=== PATIENT | female | born 1935 | race Caucasian/White ===

== ENCOUNTER 2018-01-30 03:52 | Inpatient (IN) | payer OTHER ==
[2018-01-30] MEDS ORDERED: ONDANSETRON 4 MG/2 ML VIAL ONE (04:22)
[2018-01-30] MEDS ORDERED: NA CHLORIDE 0.9% 500 ML ONE ×2 (04:22→06:04)
[2018-01-30 05:17] LABS: Absolute Lymphocytes (CBC) 0.6 K/uL (0.7-4.9); Absolute Monocytes 0.6 K/uL (0.1-1.3); Basophils % 0.2 % (0-1.3); Eosinophils % 0.1 % (0-4.4); Lymphocytes % 5.5 % (15.3-44.8); MCH 31.3 pg (27.0-35.0); MPV 10.3 fL (7.6-11.3); Monocytes % 5.6 % (3.3-12.3); RBC Red Blood Cell Count 4.41 M/uL (3.86-4.86)
[2018-01-30 05:25] LABS: Albumin 3.4 g/dL (3.4-5.0); Bilirubin Direct 0.3 mg/dL (0-0.2); Potassium 3.7 mmol/L (3.5-5.1); Protein, Total 7.7 g/dL (6.4-8.2)
[2018-01-30 05:39] LABS: Urine Blood 3+ (NEG); Urine Glucose NEGATIVE (NEG); Urine Protein NEGATIVE (NEG); Urine Specific Gravity 1.015 (1.005-1.030); Urine pH 8.5 (5.0-7.0)
[2018-01-30 05:43] LABS: Urine Bacteria LOADED /HPF (<20)
[2018-01-30 05:44] LABS: Urine Culture Reflex Order REFLEXED; Urine Triple Phosphate Crystal FEW (NONE SEEN)
--- NOTE | 2018-01-30 05:57 | EDPHYS ---
Physician Documentation [facility] Name: Kenia Mei Age: 82 yrs Sex: Female : 1935 Arrival Date: 01/30/2018 Time: 03:54 Bed 7 Private MD: ED Physician Marco Estevez HPI: 01/30 05:52 This 82 yrs old Female presents to ER via EMS with complaints of Vomiting. gs 05:52 The patient presents to the emergency department with nausea, vomiting. Onset: The gs symptoms/episode began/occurred acutely, suddenly. Possible causes: unknown. The symptoms are aggravated by nothing. The symptoms are alleviated by nothing. Associated signs and symptoms: Pertinent negatives: fever. Severity of symptoms: At their worst the symptoms were moderate in the emergency department the symptoms have improved moderately. The patient has experienced similar episodes in the past, a few times. The patient has not recently seen a physician. Historical: - Allergies: 04:11 Codeine; ea - Home Meds: 04:11 acetaminophen 325 mg Oral tab 2 tabs every 6 hours [Active]; Cozaar 100 mg Oral tab 1 ea tab once daily [Active]; losartan 100 mg oral tab 1 tab once daily [Active]; Lasix 40 mg Oral tab 1 tab 2 times per day [Active]; potassium chloride 10 mEq Oral cpER 1 cap once daily [Active]; Prilosec 20 mg Oral cpDR 1 cap once daily [Active]; tolterodine 4 mg oral cp24 1 cap once daily [Active]; Vitamin B-12 1,000 mcg Oral tab 1,000 mcg [Active]; Xarelto 20 mg oral tab 1 tab once daily [Active]; Zocor 40 mg Oral tab 1 tab once daily [Active]; - PMHx: 04:11 urinary retention; SVT; Anemia; Atrial Fib; CHF; Genital herpes; Hyperlipidemia; ea Hypertension; Hypokalemia; kidney failure; Major Depressive Disorder; muscle wasting and atrophy; Urinary incontinence; UTI (Chronic); - PSHx: 04:11 Bilateral Knee Surgery; ea - Immunization history:: Adult Immunizations up to date. - Social history:: Smoking status: Patient/guardian denies using tobacco. - Ebola Screening: : No symptoms or risks identified at this time. ROS: 05:52 All other systems are negative. gs Exam: 05:52 Head/Face: Normocephalic, atraumatic. Eyes: Pupils equal round and reactive to light, gs extra-ocular motions intact. Lids and lashes normal. Conjunctiva and sclera are non-icteric and not injected. Cornea within normal limits. Periorbital areas with no swelling, redness, or edema. ENT: Nares patent. No nasal discharge, no septal abnormalities noted. Tympanic membranes are normal and external auditory canals are clear. Oropharynx with no redness, swelling, or masses, exudates, or evidence of obstruction, uvula midline. Mucous membranes moist. Neck: Trachea midline, no thyromegaly or masses palpated, and no cervical lymphadenopathy. Supple, full range of motion without nuchal rigidity, or vertebral point tenderness. No Meningismus. Chest/axilla: Normal chest wall appearance and motion. Nontender with no deformity. No lesions are appreciated. Respiratory: Lungs have equal breath sounds bilaterally, clear to auscultation and percussion. No rales, rhonchi or wheezes noted. No increased work of breathing, no retractions or nasal flaring. Abdomen/GI: Soft, non-tender, with normal bowel sounds. No distension or tympany. No guarding or rebound. No evidence of tenderness throughout. Back: No spinal tenderness. No costovertebral tenderness. Full range of motion. Skin: Warm, dry with normal turgor. Normal color with no rashes, no lesions, and no evidence of cellulitis. MS/ Extremity: Pulses equal, no cyanosis. Neurovascular intact. Full, normal range of motion. Neuro: Awake and alert, GCS 15, oriented to person, place, time, and situation. Cranial nerves II-XII grossly intact. Motor strength 5/5 in all extremities. Sensory grossly intact. Cerebellar exam normal. Normal gait. 05:52 Constitutional: The patient appears alert, awake. 05:52 Cardiovascular: Rate: tachycardic, Rhythm: irregularly irregular, Pulses: no pulse deficits are appreciated. 05:52 ECG was reviewed by the Attending Physician. Vital Signs: 03:55 BP 102 / 68; Pulse 109; Resp 18; Temp 98; Pulse Ox 97% on R/A; Weight 90.72 kg; Height ea 5 ft. 4 in. (162.56 cm); Pain 0/10; 04:54 BP 111 / 72; Pulse 104; Resp 22; Pulse Ox 95% on R/A; jb4 06:00 BP 108 / 65; Pulse 108; Resp 18; Pulse Ox 92% on R/A; jb4 06:30 BP 98 / 45; Pulse 126; Resp 18; Pulse Ox 91% ; jb4 07:14 BP 98 / 62; Pulse 101 MON; Resp 17; Temp 98.0; Pulse Ox 98% on R/A; Pain 0/10; sg 07:29 BP 116 / 68; Pulse 105; Resp 16 S; Temp 98.3(O); Pulse Ox 96% on 2 lpm NC; Pain 0/10; aa5 03:55 Body Mass Index 34.33 (90.72 kg, 162.56 cm) ea 07:14 A fib sg MDM: 04:08 Patient medically screened. 05:52 Differential diagnosis: Nonspecific abd pain, viral gastroenteritis, gastroenteritis, gs uti. Data reviewed: vital signs, nurses notes. Response to treatment: the patient's symptoms have mildly improved after treatment, and as a result, I will admit patient. 01/30 04:11 Order name: Basic Metabolic Panel; Complete Time: 05:39 01/30 04:11 Order name: CBC with Diff 01/30 04:11 Order name: Hepatic Function; Complete Time: 05:39 01/30 04:11 Order name: Lipase; Complete Time: 05:39 01/30 04:11 Order name: Urine Microscopic Only; Complete Time: 05:50 01/30 05:31 Order name: Urine Dipstick--Ancillary (enter results); Complete Time: 05:39 rg2 01/30 05:44 Order name: Urine Culture EDGA 01/30 05:51 Order name: Blood Culture* 01/30 05:51 Order name: Lactate 01/30 05:52 Order name: Blood Culture ED[facility] 01/30 05:52 Order name: Lactate EDGA 01/30 06:04 Order name: Comprehensive Metabolic Panel [facility] 01/30 06:04 Order name: Comprehensive Metabolic Panel [facility] 01/30 06:04 Order name: Troponin I [facility] 01/30 04:11 Order name: IV Saline Lock; Complete Time: 04:23 01/30 04:11 Order name: Labs collected and sent; Complete Time: 04:23 01/30 04:11 Order name: Urine Dipstick-Ancillary (obtain specimen); Complete Time: 05:15 01/30 04:11 Order name: EKG; Complete Time: 04:12 01/30 04:11 Order name: EKG - Nurse/Tech; Complete Time: 04:50 01/30 06:04 Order name: CONS Pharmacy Consult EDGA 01/30 06:04 Order name: Troponin I [facility] 01/30 06:04 Order name: Troponin I [facility] 01/30 06:04 Order name: Full Liquid [facility] 01/30 06:33 Order name: Manual Differential ED[facility] EC:52 Rate is 108 beats/min. Rhythm is irregularly irregular. QRS interval is normal. QT gs interval is normal. T waves are Inverted. Clinical impression: NSR w/ Non-specific ST/T Changes and Abnormal EKG without significant change. Administered Medications: 04:23 Drug: Zofran 4 mg Route: IVP; Site: right forearm; jb4 04:50 Follow up: Response: No adverse reaction jb4 04:23 Drug: NS 0.9% 500 ml Route: IV; Rate: bolus; Site: right forearm; jb4 06:31 Drug: Rocephin - (cefTRIAXone) 1 grams Route: IVPB; Infused Over: 30 mins; Site: right ea forearm; 07:00 Follow up: Response: No adverse reaction; IV Status: Completed infusion sg 06:31 Drug: NS 0.9% 500 ml Route: IV; Rate: bolus; Site: right forearm; ea 07:20 Follow up: IV Status: Completed infusion aa5 Disposition: 01/30/18 05:57 Hospitalization ordered by Fabiana Rich for Inpatient Admission. Preliminary diagnosis are Gram-negative sepsis, unspecified, Acute tubulo-interstitial nephritis. - Bed requested for Telemetry/MedSurg (Inpatient). - Status is Inpatient Admission. aa5 - Condition is Stable. - Problem is new. - Symptoms have improved. UTI on Admission? Yes Signatures: Dispatcher [employer] EDGA Tawanna Neri RN RN mw Calderon, Audri RN RN aa5 Robert Fraser RN RN jb4 Carleen Patricio RN RN ea Starr, Gregory, MD MD gs Gay, Steven RN sg Corrections: (The following items were deleted from the chart) 06:09 05:57 Hospitalization Ordered by Fabiana Rich MD for Inpatient Admission. Preliminary mw diagnosis is Gram-negative sepsis, unspecified; Acute tubulo-interstitial nephritis. Bed requested for Telemetry/MedSurg (Inpatient). Status is Inpatient Admission. Condition is Stable. Problem is new. Symptoms have improved. UTI on Admission? Yes. 07:59 06:09 01/30/2018 05:57 Hospitalization Ordered by Fabiana Rich MD for Inpatient aa5 Admission. Preliminary diagnosis is Gram-negative sepsis, unspecified; Acute tubulo-interstitial nephritis. Bed requested for Telemetry/MedSurg (Inpatient). Status is Inpatient Admission. Condition is Stable. Problem is new. Symptoms have improved. UTI on Admission? Yes. mw
--- NOTE | 2018-01-30 05:57 | ER ---
Nurse's Notes [facility] Name: Kenia Mei Age: 82 yrs Sex: Female : 1935 Arrival Date: 01/30/2018 Time: 03:54 Bed 7 Private MD: Diagnosis: Gram-negative sepsis, unspecified;Acute tubulo-interstitial nephritis Presentation: 01/30 03:58 Presenting complaint: EMS states: Pt has vomited coffee ground like emesis. Transition jb4 of care: patient was received from another setting of care (long-term care facility), [facility]. Onset of symptoms was January 30, 2018. Risk Assessment: Do you want to hurt yourself or someone else? Patient reports no desire to harm self or others. Initial Sepsis Screen: Does the patient meet any 2 criteria? No. Patient's initial sepsis screen is negative. Does the patient have a suspected source of infection? No. Patient's initial sepsis screen is negative. Care prior to arrival: None. 03:58 Method Of Arrival: EMS: [facility] jb4 03:58 Acuity: NENA 3 jb4 Triage Assessment: 03:58 General: Appears in no apparent distress. comfortable, Behavior is calm, cooperative, jb4 appropriate for age. Pain: Denies pain. GI: Abdomen is flat, Bowel sounds present X 4 quads. Abd is soft and non tender X 4 quads. Reports vomiting. Historical: - Allergies: 04:11 Codeine; ea - Home Meds: 04:11 acetaminophen 325 mg Oral tab 2 tabs every 6 hours [Active]; Cozaar 100 mg Oral tab 1 ea tab once daily [Active]; losartan 100 mg oral tab 1 tab once daily [Active]; Lasix 40 mg Oral tab 1 tab 2 times per day [Active]; potassium chloride 10 mEq Oral cpER 1 cap once daily [Active]; Prilosec 20 mg Oral cpDR 1 cap once daily [Active]; tolterodine 4 mg oral cp24 1 cap once daily [Active]; Vitamin B-12 1,000 mcg Oral tab 1,000 mcg [Active]; Xarelto 20 mg oral tab 1 tab once daily [Active]; Zocor 40 mg Oral tab 1 tab once daily [Active]; - PMHx: 04:11 urinary retention; SVT; Anemia; Atrial Fib; CHF; Genital herpes; Hyperlipidemia; ea Hypertension; Hypokalemia; kidney failure; Major Depressive Disorder; muscle wasting and atrophy; Urinary incontinence; UTI (Chronic); - PSHx: 04:11 Bilateral Knee Surgery; ea - Immunization history:: Adult Immunizations up to date. - Social history:: Smoking status: Patient/guardian denies using tobacco. - Ebola Screening: : No symptoms or risks identified at this time. Screenin:56 Abuse screen: Denies threats or abuse. Nutritional screening: No deficits noted. ea Tuberculosis screening: No symptoms or risk factors identified. 04:02 Fall Risk None identified. jb4 Assessment: 04:02 General: Appears in no apparent distress. comfortable, Behavior is calm, cooperative, jb4 appropriate for age. Pain: Denies pain. Neuro: Level of Consciousness is awake, alert, obeys commands, Oriented to person, place, time, situation. Cardiovascular: Denies chest pain, shortness of breath, Heart tones S1 S2 present Patient's skin is warm and dry. Respiratory: Airway is patent Respiratory effort is even, unlabored, Respiratory pattern is regular, symmetrical, Breath sounds are clear bilaterally. Denies shortness of breath. GI: Abdomen is round Bowel sounds present X 4 quads. Abd is soft and non tender X 4 quads. Reports Coffee ground like emesis. : No signs and/or symptoms were reported regarding the genitourinary system. EENT: No signs and/or symptoms were reported regarding the EENT system. Derm: Skin is intact, Skin is pink, warm \T\ dry. Musculoskeletal: Circulation, motion, and sensation intact. 04:54 Reassessment: Patient appears in no apparent distress at this time. Patient and/or jb4 family updated on plan of care and expected duration. Pain level reassessed. Patient is alert, oriented x 3, equal unlabored respirations, skin warm/dry/pink. Patient denies pain at this time. 05:30 Reassessment: Patient appears in no apparent distress at this time. Patient and/or jb4 family updated on plan of care and expected duration. Pain level reassessed. Patient is alert, oriented x 3, equal unlabored respirations, skin warm/dry/pink. Patient denies pain at this time. 06:30 Reassessment: Patient appears in no apparent distress at this time. Patient and/or jb4 family updated on plan of care and expected duration. Pain level reassessed. Patient is alert, oriented x 3, equal unlabored respirations, skin warm/dry/pink. Pt put on 2l NC per protocol. Patient denies pain at this time. 07:20 General: Appears comfortable, Behavior is calm, cooperative, appropriate for age. Pain: aa5 Denies pain. Neuro: Level of Consciousness is awake, alert, obeys commands, Oriented to person, place, time, situation, Pricing Supervisor are equal bilaterally Moves all extremities. Speech is normal, Facial symmetry appears normal, Pupils are PERRLA. Cardiovascular: Heart tones S1 S2 present Rhythm is irregular. Respiratory: Airway is patent Respiratory effort is even, unlabored, Respiratory pattern is regular, symmetrical, Breath sounds are clear bilaterally. GI: Abdomen is round obese, Bowel sounds present X 4 quads. Abd is soft and non tender X 4 quads. Reports vomiting, Patient currently denies nausea. : Denies burning with urination. EENT: No signs and/or symptoms were reported regarding the EENT system. Derm: Skin is pink, warm \T\ dry. Musculoskeletal: Range of motion: intact in all extremities, Pt reports she is ambulatory with a walker. 07:50 Reassessment: Patient is alert, oriented x 3, equal unlabored respirations, skin aa5 warm/dry/pink. Vital Signs: 03:55 BP 102 / 68; Pulse 109; Resp 18; Temp 98; Pulse Ox 97% on R/A; Weight 90.72 kg; Height ea 5 ft. 4 in. (162.56 cm); Pain 0/10; 04:54 BP 111 / 72; Pulse 104; Resp 22; Pulse Ox 95% on R/A; jb4 06:00 BP 108 / 65; Pulse 108; Resp 18; Pulse Ox 92% on R/A; jb4 06:30 BP 98 / 45; Pulse 126; Resp 18; Pulse Ox 91% ; jb4 07:14 BP 98 / 62; Pulse 101 MON; Resp 17; Temp 98.0; Pulse Ox 98% on R/A; Pain 0/10; sg 07:29 BP 116 / 68; Pulse 105; Resp 16 S; Temp 98.3(O); Pulse Ox 96% on 2 lpm NC; Pain 0/10; aa5 03:55 Body Mass Index 34.33 (90.72 kg, 162.56 cm) ea 07:14 A fib sg ED Course: 03:54 Patient arrived in ED. tl2 03:57 Marco Estevez MD is Attending Physician. gs 03:57 Patient has correct armband on for positive identification. Placed in gown. Bed in low ea position. Call light in reach. Side rails up X2. 03:57 Arm band placed on right wrist. Patient placed in an exam room, on a stretcher, on ea pulse oximetry. 03:58 Robert Fraser, RN is Primary Nurse. jb4 04:00 Triage completed. jb4 04:02 Pulse ox on. NIBP on. jb4 04:25 Inserted saline lock: 22 gauge in right forearm, using aseptic technique. Blood jb4 collected. 05:56 Fabiana Rich MD is Hospitalizing Provider. gs 07:00 No provider procedures requiring assistance completed. IV is patent. sg 07:50 Patient admitted, IV remains in place. aa5 Administered Medications: 04:23 Drug: Zofran 4 mg Route: IVP; Site: right forearm; jb4 04:50 Follow up: Response: No adverse reaction jb4 04:23 Drug: NS 0.9% 500 ml Route: IV; Rate: bolus; Site: right forearm; jb4 06:31 Drug: Rocephin - (cefTRIAXone) 1 grams Route: IVPB; Infused Over: 30 mins; Site: right ea forearm; 07:00 Follow up: Response: No adverse reaction; IV Status: Completed infusion sg 06:31 Drug: NS 0.9% 500 ml Route: IV; Rate: bolus; Site: right forearm; ea 07:20 Follow up: IV Status: Completed infusion aa5 Outcome: 05:57 Decision to Hospitalize by Provider. gs 07:50 Admitted to Tele accompanied by tech, via stretcher, with oxygen, with chart, Report aa5 called to CLEMENT Tejada 07:50 Condition: stable 07:50 Discharge instructions given to patient, Instructed on the need for admit, Demonstrated understanding of instructions. 07:59 Patient left the ED. aa5 Signatures: Liborio Rosado RN RN sg Calderon, Audri, RN RN aa5 Bhavana Heath RN RN tl2 Robert Fraser RN RN jb4 Carleen Patricio RN RN ea Starr, Gregory, MD MD Corrections: (The following items were deleted from the chart) 06:47 06:30 BP 108 / 65; Pulse 108bpm; Resp 18bpm; Pulse Ox 92% RA; jb4 jb4 06:48 06:30 Reassessment: Patient appears in no apparent distress at this time. Patient jb4 and/or family updated on plan of care and expected duration. Pain level reassessed. Patient is alert, oriented x 3, equal unlabored respirations, skin warm/dry/pink. Patient denies pain at this time. jb4
[2018-01-30] MEDS ORDERED: ONDANSETRON 4 MG/2 ML VIAL IV PRN (06:02)
[2018-01-30] MEDS ORDERED: MORPHINE 2 MG/ML SYR IV PRN (06:02)
[2018-01-30] MEDS ORDERED: ACETAMINOPHEN 500 MG TAB PO PRN (06:02)
[2018-01-30] MEDS ORDERED: CEFTRIAXONE 1000 MG/VIAL ONE (06:03)
[2018-01-30 06:33] LABS: Blood Morphology Comment NOT SEEN (NOT SEEN); Platelet Estimate ADEQ
--- NOTE | 2018-01-30 07:57 | P.HP ---
Certification for Inpatient Patient admitted to: Inpatient With expected LOS: >2 Midnights Patient will require the following post-hospital care: None Practitioner: I am a practitioner with admitting privileges, knowledge of patient current condition, hospital course, and medical plan of care. Services: Services provided to patient in accordance with Admission requirements found in Title 42 Section 412.3 of the Code of Federal Regulations Patient History Date of Service: 01/30/18 Reason for admission: coffee-ground emesis/atrial fibrillation/history of anti coagulation use/ History of Present Illness: patient is an 82-year-old female who came to the hospital with coffee-ground emesis. Patient has been having coffee-ground emesis for the last 12 hr. Patient is on anti coagulation for her atrial fibrillation. Patient was sent over for evaluation. In the ER she had lab workup done which did not indicate significant anemia. However patient was tachycardic and she had a leukocytosis. It was decided that patient should be admitted for further evaluation for her Coffee-ground emesis and monitoring her H&H. Will hydrate her and give her some anti emetics. Patient has significant dementia and is not able to give us much information. She has significant dementia but does get around in her wheelchair at the long term. Will monitor her very closely. Patient is a full code. Allergies codeine Allergy (Verified 04/23/17 00:37) Itching Home Medications: Rivaroxaban [Xarelto] 20 mg PO DAILY #30 tablet 05/23/15 Potassium Chloride [Klor-Con 10] 1 tab PO DAILY 07/18/15 Simvastatin [Zocor*] 1 tab PO DAILY 07/18/15 Tolterodine Tartrate [Detrol LA*] 1 cap PO DAILY 07/18/15 Acetaminophen 650 mg PO Q6HP PRN 04/23/17 Albuterol Neb [Proventil 0.083% Neb Soln] 3 ml NEB Q8H 04/23/17 Hydrocodone/Chlorphen P-Stirex [Tussionex Pennkinetic Susp] 5 ml PO Q12HP PRN Losartan Potassium 100 mg PO DAILY 04/23/17 Tolterodine Tartrate [Detrol] 2 mg PO BID 04/23/17 Amlodipine [Norvasc*] 10 mg PO DAILY #30 tab 04/26/17 Azithromycin Tab [Zithromax*] 500 mg PO DAILY #10 tab 11/26/17 Pantoprazole [Protonix Tab*] 40 mg PO DAILYAC #30 tab 04/26/17 - Past Medical/Surgical History Diabetic: No -: Atrial fibrillation -: Cardiomyopathy -: Hypertension -: Gastroesophageal reflux disease -: Osteoarthritis -: Bladder spasms -: Alzheimer's dementia -: bilateral knee replacement -: bilateral cataract surgery - Family History Father Notes: pt unable to answer questions - Social History Alcohol use: No CD- Drugs: No Caffeine use: No Review of Systems is unable to be obtained (patient with significant dementia) Physical Examination - Vital Signs Temperature: 98 F Blood Pressure: 130/80 Pulse: 78 Respirations: 18 Pulse Ox (%): 96 - Physical Exam General: Alert, In no apparent distress, Demented HEENT: Atraumatic, Normocephalic Neck: Supple, 2+ carotid pulse no bruit, JVD not distended Respiratory: Clear to auscultation bilaterally, Normal air movement Cardiovascular: Regular rate/rhythm, Normal S1 S2, Systolic murmur Gastrointestinal: Normal bowel sounds, Hypoactive, Soft and benign, Non- distended Musculoskeletal: No clubbing, Swelling Integumentary: Other ( bruising of the skin) Neurological: Normal speech, Normal tone, Sensation intact, Cranial nerves 3-12 intact, Abnormal gait, Abnormal strength Lymphatics: No axilla or inguinal lymphadenopathy - Studies Laboratory Data (last 24 hrs) 01/30/18 04:35: WBC 11.2 H, Hgb 13.8, Hct 41.0, Plt Count 211 01/30/18 04:35: Sodium 141, Potassium 3.7, BUN 19 H, Creatinine 0.90, Glucose 135 H, Total Bilirubin 1.0, AST 17, ALT 14, Alkaline Phosphatase 117, Lipase 126 Assessment & Plan - Problems (Diagnosis) (1) Upper GI bleed Current Visit: Yes Status: Acute (2) Coffee ground emesis Current Visit: Yes Status: Acute (3) Atrial fibrillation with rapid ventricular response Current Visit: Yes Status: Acute (4) Current use of residential anticoagulation Current Visit: Yes Status: Acute (5) Alzheimer's dementia Current Visit: Yes Status: Acute (6) HTN (hypertension) Onset Date: 05/22/15 Current Visit: No Status: Chronic - Plan Plan: 1. Continue with IV hydration and PPI drip 2. Continue with IV antibiotics 3. continue with low-dose beta-flex for rate control but hold anticoagulation 4. NPO;may start on full liquid diet later today 5. GI consultation if hemoglobin decreases 6. Serial H&H, and we will monitor LFTs and lipase along with electrolytes. 7. GI and DVT prophylaxis Discharge Plan: Home Plan to discharge in: Greater than 2 days - Advance Directives Does patient have a Living Will: No Does patient have a Durable POA for Healthcare: No - Code Status/Comfort Care Code Status Assessed: Yes Code Status: Full Code Critical Care: No Time Spent Managing PTS Care (In Minutes): 50
[2018-01-30] MEDS ORDERED: NA CHLORIDE 0.9% 250 ML IV SCH (08:00)
[2018-01-30 08:10] VITALS: O2SAT 96
[2018-01-30] MEDS ORDERED: LOSARTAN POTASSIUM 50 MG TABLET PO SCH (09:00)
[2018-01-30] MEDS ORDERED: HOME MED 1 EA UNK (Tolterodine Tartrate [Detrol] 2 MG) PO SCH (09:00)
[2018-01-30] MEDS ORDERED: AMLODIPINE 10 MG TAB PO SCH (09:00)
[2018-01-30] MEDS ORDERED: METOPROLOL TAR 25 MG TAB PO SCH ×2 (09:00)
[2018-01-30] MEDS ORDERED: PANTOPRAZOLE 40 MG INJ IVP SCH (09:00)
[2018-01-30] MEDS: NA CHLORIDE 0.9% 1,000 ML IV SCH ×2 (10:19→17:00)
[2018-01-30 11:20] LABS: Protime INR 1.93
[2018-01-30 11:47] LABS: Hematocrit 39.8 % (36.0-45.0)
[2018-01-30 12:53] LABS: Hematocrit 37.1 % (36.0-45.0)
[2018-01-30] MEDS ORDERED: RIVAROXABAN 20 MG TABLET PO SCH (17:30)
[2018-01-30 20:39] VITALS: BP 113/71; TEMP 98.9; BMI 34.3
--- NOTE | 2018-01-31 08:38 | EKG ---
Test Date: 2018-01-30 Test Time: 04:51:05 [employer] Education Teacher: MEASUREMENT RESULTS: Intervals: Rate: 108 MN: QRSD: 78 QT: 334 QTc: 447 [place]: P: MN: QRS: 12 T: 145 INTERPRETIVE STATEMENTS: Atrial fibrillation with rapid ventricular response Possible Anterior infarct, age undetermined Abnormal ECG Compared to ECG 04/24/2017 09:02:49 Myocardial infarct finding now present Junctional rhythm no longer present Left ventricular hypertrophy no longer present Early repolarization no longer present Electronically Signed On 01-31-18 08:36:44 CDT by He Trimble
== END 2018-01-30 18:29 | disposition home or self-care (01) | DRG 378 ==
LOC: ER 03:52 → ERHOLD 06:09 → 4TH 07:50
PROVIDERS: ADMIT Hospitalist; ATTEND Family Medicine
DX: K92.0 Hematemesis (principal); I43 Cardiomyopathy in diseases classified elsewhere; I11.9 Hypertensive heart disease without heart failure; T45.515A Adverse effect of anticoagulants, initial encounter; I48.91 Unspecified atrial fibrillation; G30.9 Alzheimer's disease, unspecified; F02.80 Dementia in other diseases classified elsewhere, unspecified severity, without behavioral disturbance, psychotic disturbance, mood disturbance, and anxiety; K21.9 Gastro-esophageal reflux disease without esophagitis; M19.90 Unspecified osteoarthritis, unspecified site; Y92.099 Unspecified place in other non-institutional residence as the place of occurrence of the external cause; Z88.5 Allergy status to narcotic agent
CPT/HCPCS: 36415; 80048; 80076; 81003; 81015; 82962; 83605; 83690; 84484; 85014; 85018; 85025; 85610; 87040; 87077; 87086; 87088; 87186; 93005; 96365; 96375; 99285; C9113; J2405; J7030

== ENCOUNTER 2018-10-13 23:16 | Emergency (ER) | payer OTHER ==
[2018-10-14] MEDS ORDERED: FENTANYL CITR 100 MCG/2 ML ONE ×2 (00:41→04:38)
[2018-10-14 00:52] LABS: Absolute Neutrophil 12.8 K/uL (1.8-8.0); Basophils % 0.3 % (0-1.3); Hematocrit 32.4 % (36.0-45.0); Lymphocytes % 6.5 % (15.3-44.8); MPV 8.7 fL (7.6-11.3); Monocytes % 6.5 % (3.3-12.3); RBC Red Blood Cell Count 3.56 M/uL (3.86-4.86)
[2018-10-14 00:53] LABS: Protime INR 1.2
[2018-10-14 01:37] LABS: Albumin 2.5 g/dL (3.4-5.0); Bilirubin Direct 0.1 mg/dL (0-0.2); Bilirubin Total 0.4 mg/dL (0.2-1.0); Magnesium 1.9 mg/dL (1.8-2.4); Potassium 4.3 mmol/L (3.5-5.1); Protein, Total 6.7 g/dL (6.4-8.2)
[2018-10-14 01:40] LABS: Troponin (Emerg Dept Use Only) 0.58 ng/mL (0.0-0.045)
[2018-10-14] MEDS ORDERED: METOPROLOL TARTRATE 5 MG/5 ML INJ IV ONE (02:04)
[2018-10-14 02:25] LABS: Blood Morphology Comment NOT SEEN (NOT SEEN); Platelet Estimate ADEQ
[2018-10-14] MEDS ORDERED: METOPROLOL TAR 25 MG TAB ONE (04:12)
--- NOTE | 2018-10-14 04:36 | ER ---
Nurse's Notes [facility] Name: Kenia Mei Age: 82 yrs Sex: Female : 1935 Arrival Date: 10/13/2018 Time: 23:22 Bed 30 Private MD: Diagnosis: A fib RVR;Left distal femur fracure Presentation: 10/13 23:28 Presenting complaint: EMS states: patient fell this afternoon at 3 pm in the [place] [facility] [place] and sustained fracture in distal femur. Now came in for left knee pain. Transition of care: patient was received from another setting of care (long-term care facility), [facility]. Onset of symptoms was October 13, 2018 at 15:00. Risk Assessment: Do you want to hurt yourself or someone else? Patient reports no desire to harm self or others. Initial Sepsis Screen: Does the patient meet any 2 criteria? No. Patient's initial sepsis screen is negative. Does the patient have a suspected source of infection? No. Patient's initial sepsis screen is negative. Care prior to arrival: None. 23:28 Method Of Arrival: EMS: [facility] mg2 23:28 Acuity: NENA 3 mg2 Historical: - Allergies: 23:31 Codeine; mg2 - Home Meds: 23:31 acetaminophen 325 mg Oral tab 2 tabs every 6 hours [Active]; albuterol sulfate 2.5 mg mg2 /3 mL (0.083 %) Inhl nebu 3 mL every 8 hours [Active]; Bactrim DS 800-160 mg Oral tab 1 tab once daily [Active]; Detrol 2 mg Oral tab 1 tab 2 times per day [Active]; Cozaar 100 mg Oral tab 1 tab once daily [Active]; Guaifenesin AC 10-100 mg/5 mL Oral liqd 10 mL every 8 hours [Active]; losartan 100 mg Oral tab 1 tab once daily [Active]; Lasix 40 mg Oral tab 1 tab 2 times per day [Active]; potassium chloride 10 mEq Oral cpER 1 cap once daily [Active]; Prilosec 20 mg Oral cpDR 1 cap once daily [Active]; sotalol 80 mg Oral tab 0.5 tab every 12 hours [Active]; tolterodine 4 mg Oral cp24 1 cap once daily [Active]; tolterodine 4 mg Oral cp24 1 cap once daily [Active]; Tussionex Pennkinetic ER 10-8 mg/5 mL Oral su12 5 mL every 12 hours [Active]; Xarelto 20 mg Oral tab 1 tab once daily [Active]; Vitamin B-12 1,000 mcg Oral tab 1000 mcg [Active]; Zocor 40 mg Oral tab 1 tab once daily [Active]; Xarelto 20 mg Oral tab 1 tab once daily [Active]; Zofran (as hydrochloride) 4 mg Oral tab 1 tab every 6 hours [Active]; - PMHx: 23:31 Anemia; Atrial Fib; CHF; Genital herpes; Hyperlipidemia; Hypertension; Hypokalemia; mg2 kidney failure; Major Depressive Disorder; muscle wasting and atrophy; SVT; Urinary incontinence; urinary retention; UTI (Chronic); - Immunization history:: Flu vaccine status is unknown. - Social history:: Smoking status: unknown. - Ebola Screening: : No symptoms or risks identified at this time. - Family history:: not pertinent. - Hospitalizations: : No recent hospitalization is reported. Screenin:43 Abuse screen: Denies threats or abuse. Denies injuries from another. Nutritional mg2 screening: No deficits noted. Tuberculosis screening: No symptoms or risk factors identified. Fall Risk Fall in past 12 months (25 points). IV access (20 points). Assessment: 23:43 General: Appears in no apparent distress. comfortable, Behavior is calm, cooperative. mg2 Pain: Complains of pain in left knee. Neuro: Level of Consciousness is awake, alert, obeys commands, Oriented to person. Cardiovascular: Capillary refill < 3 seconds Patient's skin is warm and dry. Respiratory: Airway is patent Respiratory effort is even, unlabored, Respiratory pattern is regular, symmetrical. GI: No signs and/or symptoms were reported involving the gastrointestinal system. : No signs and/or symptoms were reported regarding the genitourinary system. EENT: No signs and/or symptoms were reported regarding the EENT system. Derm: Skin is intact, is healthy with good turgor, Skin is pink, warm \T\ dry. normal. Musculoskeletal: Circulation, motion, and sensation intact. Capillary refill < 3 seconds. 10/14 00:25 Reassessment: [phone] (Simone Mei -son). mg2 01:13 Reassessment: patient sent to ct scan via stretcher. mg2 04:20 Reassessment: Pt screaming out complaining of pain to leg. Discussed with Dr Duran. Pt fc to get Fentanyl IVP. Vital Signs: 10/13 23:42 BP 111 / 58; Pulse 125; Resp 24; Temp 98.6; Pulse Ox 94% on R/A; Weight 90.72 kg (R); mg2 Height 5 ft. 4 in. (162.56 cm); Pain 5/10; 23:42 BP 125 / 98; Pulse 139; Resp 35; Temp 98.6; Pulse Ox 98% on 2 lpm NC; mg2 10/14 01:43 BP 106 / 72; Pulse 109; Resp 28; Pulse Ox 98% on 2 lpm NC; mg2 02:14 BP 96 / 65; Pulse 94; Resp 26; Temp 98; Pulse Ox 99% on 2 lpm NC; mg2 03:17 BP 96 / 64; Pulse 96; Resp 24; Temp 98.7(O); Pulse Ox 98% on 3 lpm NC; Pain 2/10; eb1 04:41 BP 123 / 77; Pulse 109; Resp 27; Temp 98.7(A); Pulse Ox 95% on 3 lpm NC; Pain 6/10; eb1 10/13 23:42 Body Mass Index 34.33 (90.72 kg, 162.56 cm) mg2 ED Course: 10/13 23:22 Patient arrived in ED. fc 23:28 Shyam Sawyer, RN is Primary Nurse. mg2 23:29 Triage completed. mg2 23:31 Arm band placed on. mg2 23:43 No provider procedures requiring assistance completed. Maintain EMS IV. Dressing mg2 intact. Good blood return noted. Site clean \T\ dry. Gauge \T\ site: 22 \T\ LAC. 23:44 Patient has correct armband on for positive identification. mg2 10/14 00:10 Corky Duran MD is Attending Physician. wa 01:36 X-ray completed. Portable x-ray completed in exam room. Patient tolerated procedure kw well. 01:37 Notified ED physician of a critical lab result(s). trop of 0.58. fc 01:38 XRAY Chest (1 view) In Process Unspecified. EDMS 01:38 XRAY Pelvis In Process Unspecified. EDMS 01:38 Femur Left XRAY In Process Unspecified. EDMS 01:54 CT completed. Patient tolerated procedure well. Patient moved to CT via stretcher. Patient moved back from CT. 01:59 CT Head C Spine In Process Unspecified. EDMS 03:23 Knee immobilizer applied on left knee. mg2 04:38 Appears restless. transfer transportation to receiving facility. eb1 04:39 Notified family of patient transfer. eb1 05:17 Patient transferred, IV remains in place. eb1 Administered Medications: 00:30 Drug: fentaNYL (PF) 50 mcg Route: IVP; Site: left antecubital; mg2 01:46 Follow up: Response: No adverse reaction; Marked relief of symptoms; Pain is decreased mg2 01:57 Drug: Lopressor 5 mg Route: IVP; Site: left antecubital; mg2 02:13 Follow up: Response: No adverse reaction; Marked relief of symptoms mg2 04:02 Drug: Metoprolol 25 mg Route: PO; eb1 05:19 Follow up: Response: No adverse reaction eb1 04:30 Drug: fentaNYL (PF) 50 mcg Route: IVP; Site: left antecubital; fc 05:19 Follow up: Response: No adverse reaction eb1 Outcome: 04:35 ER care complete, transfer ordered by . mn 05:16 Transferred by ground EMS to [facility]. eb1 05:16 Condition: stable 05:16 Condition: unchanged 05:20 Patient left the ED. eb1 Signatures: Dispatcher [employer] EDMS Mynor Gagnon Pricila Cornelius RN RN Rolanda Peters William, MD MD mn Shyam Sawyer RN RN [facility] Amada Hernandez RN RN eb1 Corrections: (The following items were deleted from the chart) 00:58 15 23:42 BP 111 / 58; Pulse 125bpm; Resp 18bpm; Pulse Ox 94% RA; Temp 98.6F; 90.72 mg2 kg Reported; Height 5 ft. 4 in.; BMI: 34.3; Pain 5/10; mg2 10/14 03:24 15 23:43 Maintain EMS IV. Dressing intact. mg2 mg2 10/14 05:18 03:17 BP 96 / 64; Pulse 96bpm; Resp 24bpm; Pulse Ox 98% RA; Temp 98.7F Oral; Pain 2/10; eb1 mg2 05:18 04:41 BP 123 / 77; Pulse 109bpm; Resp 27bpm; Pulse Ox 95%; Temp 98.7F Axillary; Pain eb1 6/10; eb1
--- NOTE | 2018-10-14 04:37 | EDPHYS ---
Physician Documentation [facility] Name: Kenia Mei Age: 82 yrs Sex: Female : 1935 Arrival Date: 10/13/2018 Time: 23:22 Bed 30 Private MD: ED Physician Corky Duran HPI: 10/14 04:24 This 82 yrs old Female presents to ER via EMS with unknown complaint. wa 04:24 This 82 yrs old Female presents to ER via EMS with complaints of Left femur wa fracture. 04:24 The patient presents with an injury, swelling, tenderness. The complaints affect the wa The complaints affect the lower aspect of femur. Context: The problem was sustained at a halfway or assisted living facility, resulted from the patient falling, the patient is not able to bear weight, the patient is not able to ambulate, Problem is a result from a previous injury: h/o prosthetic knee. Onset: The symptoms/episode began/occurred yesterday. Modifying factors: The symptoms are alleviated by nothing. the symptoms are aggravated by movement. Associated signs and symptoms: The patient has no apparent associated signs or symptoms. Treatment prior to arrival includes: no previous treatment. Severity of symptoms: At their worst the symptoms were moderate, in the emergency department the symptoms are unchanged. It is unknown whether or not the patient has had similar symptoms in the past. The patient has been recently seen by a physician: the patient's primary care provider. pt accompanied by radiology result stating L femur fracture. Historical: - Allergies: 10/13 23:31 Codeine; mg2 - Home Meds: 23:31 acetaminophen 325 mg Oral tab 2 tabs every 6 hours [Active]; albuterol sulfate 2.5 mg mg2 /3 mL (0.083 %) Inhl nebu 3 mL every 8 hours [Active]; Bactrim DS 800-160 mg Oral tab 1 tab once daily [Active]; Detrol 2 mg Oral tab 1 tab 2 times per day [Active]; Cozaar 100 mg Oral tab 1 tab once daily [Active]; Guaifenesin AC 10-100 mg/5 mL Oral liqd 10 mL every 8 hours [Active]; losartan 100 mg Oral tab 1 tab once daily [Active]; Lasix 40 mg Oral tab 1 tab 2 times per day [Active]; potassium chloride 10 mEq Oral cpER 1 cap once daily [Active]; Prilosec 20 mg Oral cpDR 1 cap once daily [Active]; sotalol 80 mg Oral tab 0.5 tab every 12 hours [Active]; tolterodine 4 mg Oral cp24 1 cap once daily [Active]; tolterodine 4 mg Oral cp24 1 cap once daily [Active]; Tussionex Pennkinetic ER 10-8 mg/5 mL Oral su12 5 mL every 12 hours [Active]; Xarelto 20 mg Oral tab 1 tab once daily [Active]; Vitamin B-12 1,000 mcg Oral tab 1000 mcg [Active]; Zocor 40 mg Oral tab 1 tab once daily [Active]; Xarelto 20 mg Oral tab 1 tab once daily [Active]; Zofran (as hydrochloride) 4 mg Oral tab 1 tab every 6 hours [Active]; - PMHx: 23:31 Anemia; Atrial Fib; CHF; Genital herpes; Hyperlipidemia; Hypertension; Hypokalemia; mg2 kidney failure; Major Depressive Disorder; muscle wasting and atrophy; SVT; Urinary incontinence; urinary retention; UTI (Chronic); - Immunization history:: Flu vaccine status is unknown. - Social history:: Smoking status: unknown. - Ebola Screening: : No symptoms or risks identified at this time. - Family history:: not pertinent. - Hospitalizations: : No recent hospitalization is reported. ROS: 10/14 04:29 Constitutional: Negative for fever, chills, and weight loss, Eyes: Negative for injury, wa pain, redness, and discharge, ENT: Negative for injury, pain, and discharge, Neck: Negative for injury, pain, and swelling, Cardiovascular: Negative for chest pain, palpitations, and edema, Respiratory: Negative for shortness of breath, cough, wheezing, and pleuritic chest pain, Abdomen/GI: Negative for abdominal pain, nausea, vomiting, diarrhea, and constipation, Skin: Negative for injury, rash, and discoloration, Neuro: Negative for headache, weakness, numbness, tingling, and seizure. MS/extremity: Positive for pain, swelling, tenderness, of the left quadriceps and left knee. Exam: 04:30 Constitutional: This is a well developed, well nourished patient who is awake, alert, wa and in no acute distress. Head/Face: Normocephalic, atraumatic. Eyes: Pupils equal round and reactive to light, extra-ocular motions intact. Lids and lashes normal. Conjunctiva and sclera are non-icteric and not injected. Cornea within normal limits. Periorbital areas with no swelling, redness, or edema. ENT: Nares patent. No nasal discharge, no septal abnormalities noted. Tympanic membranes are normal and external auditory canals are clear. Oropharynx with no redness, swelling, or masses, exudates, or evidence of obstruction, uvula midline. Mucous membranes moist. Neck: Trachea midline, no thyromegaly or masses palpated, and no cervical lymphadenopathy. Supple, full range of motion without nuchal rigidity, or vertebral point tenderness. No Meningismus. Chest/axilla: Normal chest wall appearance and motion. Nontender with no deformity. No lesions are appreciated. Cardiovascular: Regular rate and rhythm with a normal S1 and S2. No gallops, murmurs, or rubs. Normal PMI, no JVD. No pulse deficits. Respiratory: Lungs have equal breath sounds bilaterally, clear to auscultation and percussion. No rales, rhonchi or wheezes noted. No increased work of breathing, no retractions or nasal flaring. Abdomen/GI: Soft, non-tender, with normal bowel sounds. No distension or tympany. No guarding or rebound. No evidence of tenderness throughout. Back: No spinal tenderness. No costovertebral tenderness. Full range of motion. Skin: Warm, dry with normal turgor. Normal color with no rashes, no lesions, and no evidence of cellulitis. Neuro: Awake and alert, GCS 15, oriented to person, place, time, and situation. Cranial nerves II-XII grossly intact. Motor strength 5/5 in all extremities. Sensory grossly intact. Cerebellar exam normal. Normal gait. 04:30 Musculoskeletal/extremity: Extremities: grossly normal except: noted in the left leg and left knee: pain, swelling, tenderness. Vital Signs: 10/13 23:42 BP 111 / 58; Pulse 125; Resp 24; Temp 98.6; Pulse Ox 94% on R/A; Weight 90.72 kg (R); mg2 Height 5 ft. 4 in. (162.56 cm); Pain 5/10; 23:42 BP 125 / 98; Pulse 139; Resp 35; Temp 98.6; Pulse Ox 98% on 2 lpm NC; mg2 0516 01:43 BP 106 / 72; Pulse 109; Resp 28; Pulse Ox 98% on 2 lpm NC; mg2 02:14 BP 96 / 65; Pulse 94; Resp 26; Temp 98; Pulse Ox 99% on 2 lpm NC; mg2 03:17 BP 96 / 64; Pulse 96; Resp 24; Temp 98.7(O); Pulse Ox 98% on 3 lpm NC; Pain 2/10; eb1 04:41 BP 123 / 77; Pulse 109; Resp 27; Temp 98.7(A); Pulse Ox 95% on 3 lpm NC; Pain 6/10; eb1 10/13 23:42 Body Mass Index 34.33 (90.72 kg, 162.56 cm) mg2 MDM: 00:10 Patient medically screened. wv 04:31 Differential diagnosis: closed fracture, will work up with trauma series to r/o other wv traumatic injuries. noted in Afib RVR with heart rate in 140's. will work up and treat. Data reviewed: vital signs, nurses notes. Test interpretation: by ED physician or midlevel provider: HR 127. afib RVR. low QRS voltage. diffuse ST-T Changes. . Response to treatment: the patient's symptoms have markedly improved after treatment. ED course: pt accepted at [facility] for transfer. Dr. Osman advised does not handle the type of injury pt has. . 10/14 00:25 Order name: Basic Metabolic Panel; Complete Time: 02:37 wv 10/14 00:25 Order name: CBC with Diff; Complete Time: 02: wv 10/14 00:25 Order name: LFT's; Complete Time: 02: wv 10/14 00:25 Order name: Magnesium; Complete Time: 02:38 wv 10/14 00:25 Order name: NT PRO-BNP; Complete Time: 02: wv 10/14 00:25 Order name: PT-INR; Complete Time: : wv 10/14 00:25 Order name: Troponin (emerg Dept Use Only); Complete Time: 02:38 wv 10/14 00:25 Order name: XRAY Chest (1 view) 10/14 00:26 Order name: CT Head C Spine 10/14 00:26 Order name: XRAY Pelvis 10/14 00:26 Order name: Femur Left XRAY wv 10/14 00:54 Order name: Manual Differential; Complete Time: 02:37 EDCT 10/14 00:25 Order name: EKG; Complete Time: 00:28 wv 10/14 00:25 Order name: Cardiac monitoring; Complete Time: 00:44 wv 10/14 00:25 Order name: EKG - Nurse/Tech; Complete Time: 00:44 wv 10/14 00:25 Order name: IV Saline Lock; Complete Time: 00: wv 10/14 00:25 Order name: Labs collected and sent; Complete Time: 00: wv 10/14 00:25 Order name: O2 Per Protocol; Complete Time: : wv 10/14 00:25 Order name: O2 Sat Monitoring; Complete Time: 00:44 wv 10/14 02:32 Order name: Knee Immobilizer: L knee; Complete Time: 03:23 wv Administered Medications: 00:30 Drug: fentaNYL (PF) 50 mcg Route: IVP; Site: left antecubital; mg2 01:46 Follow up: Response: No adverse reaction; Marked relief of symptoms; Pain is decreased mg2 01:57 Drug: Lopressor 5 mg Route: IVP; Site: left antecubital; mg2 02:13 Follow up: Response: No adverse reaction; Marked relief of symptoms mg2 04:02 Drug: Metoprolol 25 mg Route: PO; eb1 05:19 Follow up: Response: No adverse reaction eb1 04:30 Drug: fentaNYL (PF) 50 mcg Route: IVP; Site: left antecubital; fc 05:19 Follow up: Response: No adverse reaction eb1 Disposition: 10/14/18 04:35 Transfer ordered to [facility]. Diagnosis are A fib RVR, Left distal femur fracure . - Reason for transfer: Higher level of care. - Accepting physician is [facility] . - Condition is Fair. - Problem is an acute exacerbation. - Symptoms have improved. Signatures: Dispatcher [employer] EDMS Pricila Cornelius RN RN Corky Duran MD MD wa Gardose, Michele, RN RN [facility] Amada Hernandez RN RN eb1 Corrections: (The following items were deleted from the chart) 03:18 02:32 Knee Immobilizer ordered. mg2 mg2 05:20 04:35 10/14/2018 04:35 Transfer ordered to [facility]. Diagnosis is eb1 A fib RVR; Left distal femur fracure . Reason for transfer: Higher level of care. Accepting physician is [facility] . Condition is Fair. Problem is an acute exacerbation. Symptoms have improved. wa
--- NOTE | 2018-10-14 07:48 | RAD REPORT ---
EXAM DESCRIPTION: RAD - Pelvis - 10/14/2018 1:38 am CLINICAL HISTORY: Pelvic pain status post injury FINDINGS: No fracture or dislocation is seen. Marked osteoarthritis involves the hips. Osteoporosis
--- NOTE | 2018-10-14 07:49 | RAD REPORT ---
EXAM DESCRIPTION: RAD - Femur Left - 10/14/2018 1:38 am CLINICAL HISTORY: Left leg pain status post fall FINDINGS: Moderately to markedly displaced oblique fracture involves the distal left femur which ext ends to left knee prosthesis. Osteoporosis
--- NOTE | 2018-10-14 08:05 | RAD REPORT ---
EXAM DESCRIPTION: Jasmeet Single View10/14/2018 1:38 am CLINICAL HISTORY: Chest pain COMPARISON: 2017 FINDINGS: The left base is hazy. 1 centimeter opacity is present the left upper lobe. Right lung appears clear. The heart is mildly enlarged IMPRESSION: Left base is hazy which may indicate a small pleural effusion 1 centimeter opacity within left upper lobe may represent a pulmonary opacity or confluence of ribs a nd vessels. Follow up PA and lateral chest series recommended
[2018-10-14 11:37] VITALS: TEMP 98.7
[2018-10-14 11:39] VITALS: BP 123/77; O2SAT 95
--- NOTE | 2018-10-14 12:45 | EKG ---
Test Date: 2018-10-14 Test Time: 00:38:19 Facilities Custodian: MEASUREMENT RESULTS: Intervals: Rate: 127 [place]: QRSD: 80 QT: 278 QTc: 404 [place]: P: GA: QRS: 39 T: 148 INTERPRETIVE STATEMENTS: Atrial fibrillation with rapid ventricular response Low voltage QRS Cannot rule out Anterior infarct, age undetermined Abnormal ECG Compared to ECG 01/30/2018 04:51:05 Low QRS voltage now present Myocardial infarct finding still present Electronically Signed On 10-14-18 12:44:12 CDT by He Trimble
--- NOTE | 2018-10-14 12:45 | EKG ---
Test Date: 2018-10-14 Test Time: 02:05:19 Coating Manager: MEASUREMENT RESULTS: Intervals: Rate: 95 [place]: QRSD: 82 QT: 432 QTc: 542 [place]: P: [place]: QRS: 35 T: 137 INTERPRETIVE STATEMENTS: Atrial fibrillation Low voltage QRS Cannot rule out Anterior infarct, age undetermined T wave abnormality, consider lateral ischemia Abnormal ECG Compared to ECG 10/14/2018 00:38:19 T-wave abnormality now present Possible ischemia now present Myocardial infarct finding still present Electronically Signed On 10-14-18 12:44:06 CDT by He Trimble
--- NOTE | 2018-10-18 15:57 | RAD REPORT ---
EXAM DESCRIPTION: CT - Head C Spine Mpr Wo Con - 10/14/2018 6:42 am CLINICAL HISTORY: Pain after fall. COMPARISON: None. TECHNIQUE: Axial [address] imaging of the brain. Reformatted coronal and sagittal images ob tained. Axial [address] imaging of the cervical spine. Reformatted coronal and sagittal images obta ined. This examination was performed according to our departmental dose optimization program, which include s automated exposure control, adjustment of the mA and/or kV according to patient size and/or use of iterative reconstruction technique. FINDINGS: CT head: There is moderate prominence of the ventricles and sulci due to cortical volume loss. There is no int racranial hemorrhage. No mass lesion. No midline shift. No edema. No hyperdense vessel. Mild decrease d periventricular white matter attenuation secondary to chronic vascular ischemic change. Normal appearance of the cerebellum and vermis. Fourth ventricle is midline. Prepontine cisterns are not effaced. Normal sellar contents. Globes are intact. Orbital contents appear normal. Fluid level within the left maxillary antrum noted . Mild mucosal thickening within the frontal and ethmoid air cells. Mastoid air cells are clear on th e right side and partially opacified on the left side. Skull base is intact. Intact calvarium. CT cervical spine: There is broad reversal of lower cervical lordosis. There is significant hypertrophic change along th e anterior arch of C1 into the odontoid process. Moderate endplate hypertrophic changes in the lower cervical spine. There is no compression fracture. There is no traumatic subluxation. No prevertebral edema. There is significant diffuse cervical facet arthropathy. 2 mm degenerative intrasubstance fixa tion of C7 on T1. No fracture within the posterior elements. Multilevel facet bony fusions noted. The parapharyngeal soft tissues and mucosal spaces appear normal. Unremarkable image thyroid. Carotid artery calcifications are present. Clear lung apices. IMPRESSION: 1. Moderate senescent brain changes. No intracranial acute finding. 2. Sinus disease. 3. Mild left mastoid effusion. 4. Generalized cervical spondylosis. Multilevel facet joint fusions. No acute fracture or traumatic s ubluxation. Electronically signed by: Olga Husain DO 10/14/2018 3:16 AM CDT Due to temporary technical issues with the PACS/Fluency reporting system, reports are being signed by the in house radiologist as a courtesy to ensure prompt reporting. The interpreting radiologist is f ully responsible for the content of the report.
== END 2018-10-14 05:20 | disposition short-term general hospital (02) ==
LOC: ER 23:16
DX: S72.402A Unspecified fracture of lower end of left femur, initial encounter for closed fracture (principal); I48.2 Chronic atrial fibrillation; M97.12XA Periprosthetic fracture around internal prosthetic left knee joint, initial encounter; W19.XXXA Unspecified fall, initial encounter; Y93.9 Activity, unspecified; Y92.129 Unspecified place in nursing home as the place of occurrence of the external cause; Z88.6 Allergy status to analgesic agent
CPT/HCPCS: 93005 ×2; 85025; 80048; 36415; 83735; 85610; 80076; 84484; 83880; 70450; 72125; 71045; 72170; 73552; 96375; 96374; 99285; J3010 ×2